=== PATIENT | female | born 1970 | race Caucasian/White ===

== ENCOUNTER 2017-09-14 13:06 | Emergency (ER) | payer OTHER ==
[~2017-09-14] VITALS: Ht 175.3 cm; Wt 61.2 kg
[~2017-09-14 13:06] MED LIST: AMOXICILLIN 50500 MG PO; ASPIR 8181 MG; ATORVASTATIN CA40 MG PO; AUGMENTIN 875-1 EACH PO; DOXYCYCLINE 10100 M1 PO; EFFIENT10 MG PO; LIDOCAINE VISC100 ML PO; METFORMIN HCL500 MG PO; MUPIROCIN22 GM TOP; NORCO 5-325 TA1 EACH PO; NOVOLOG100 UNIT/M SUBQ; PERCOCET PO; PLAVIX 75 MG TA75 M1 PO; POLYMYXIN B/TMP10 ML OP; PREDNISONE50 MG PO; PROAIR HFA8.5 GM INH; PROMETHAZINE/C118 ML PO; TOPROL XL25 MG PO; ZPAK PO
[2017-09-14] MEDS ORDERED: NOVOLOG100 UNIT/1 SUBQ (13:14)
[2017-09-14 13:40] LABS: ABSOLUTE BASOPHILS 0.1 thou/uL (0.0-0.2); ABSOLUTE EOSINOPHILS 0.1 thou/uL (0.0-0.7); ABSOLUTE LYMPHOCYTES 1.9 thou/uL (0.8-5.3); ABSOLUTE MONOCYTES 0.6 thou/uL (0.0-1.2); ABSOLUTE NEUTROPHILS 5.8 thou/uL (1.6-8.1); BASOPHILS 0.6 %; EOSINOPHILS 1.4 %; HEMATOCRIT 45.9 % (37.0-47.0); HEMOGLOBIN 15.3 gm/dL (12.0-15.0); LYMPHOCYTES 22.8 %; MCH 29.7 pg (26.0-34.0); MCHC 33.2 g/dL (28.0-37.0); MCV 89.2 fL (80.0-100.0); MONOCYTES 7.3 %; MPV 8.1 fl. (7.2-11.1); NUCLEATED RBCS 0 /100WBC; PLATELET COUNT* 308 thou/uL (150-400); POLYS 67.9 %; RBC 5.14 mil/uL (4.20-5.00); RDW-CV 13.3 % (10.5-14.5); WBC 8.5 thou/uL (4.0-11.0)
[2017-09-14 13:52] LABS: ANION GAP 8 mmol/L (7-16); BUN 13 mg/dL (7-18); CALCIUM 8.6 mg/dL (8.5-10.1); CHLORIDE 95 mmol/L (98-107); CO2 27 mmol/L (21-32); CREATININE 0.9 mg/dL (0.6-1.3); SODIUM 130 mmol/L (136-145)
[2017-09-14 13:54] LABS: GLUCOSE 684 mg/dL (70-99)
[2017-09-14 14:00] LABS: APTT 26.6 Seconds (25.0-31.3); PROTIME 9.8 Seconds (9.20-11.50)
[2017-09-14 14:10] LABS: ALBUMIN 3.1 g/dL (3.4-5.0); ALKALINE PHOSPHATASE 214 U/L (46-116); CK-MB MASS < 0.5 ng/mL (<0.5-3.6); LIPASE 246 U/L (73-393); MAGNESIUM 1.8 mg/dL (1.8-2.4); NT-PRO BRAIN NAT PEPTIDE 27 pg/mL (<300); SGOT 23 U/L (15-37); SGPT 55 U/L (30-65); TOTAL BILIRUBIN 0.2 mg/dL (<0.1-1.0); TOTAL PROTEIN 7.3 g/dL (6.4-8.2); TROPONIN-I LEVEL <0.06 ng/mL (<0.06)
--- NOTE | 2017-09-14 15:03 | EKG ---
[place] [address] ELECTROCARDIOGRAM REPORT Name: CLARK VÁSQUEZ Room: [facility]#: [id number] Admission: 09/14/17 Attend Phys: Discharge: Date of : 68 Report #: [id number] THIS REPORT FOR: //name// [facility] ED Test Date: 2017-09-14 Test Time: 13:14:18 Pat Name: CLARK DARLENEZULEYMA Department: Room: Gender: F [employer] Outcomes Liaison: STUDENT : 1970 Requested By: Rafa Maki Order Number: [id number] MD: Reji Mccord Measurements Intervals [place] Rate: 89 P: 47 [place]: 147 QRS: 66 QRSD: 83 T: 36 QT: 357 QTc: 435 Interpretive Statements Sinus rhythm Probable left atrial enlargement Probable left ventricular hypertrophy Baseline wander in lead(s) V3 Compared to ECG 02/24/2016 08:01:53 LEFT VENTRICULAR HYPERTROPHY now seen Electronically Signed On 09-14-2017 15:02:54 QUALITY CONTROL COORDINATOR by Reji Mccord [email or web address] <ELECTRONICALLY SIGNED> By: Reji Mccord MD, [facility] 09/14/17 1502 1314 1314 Reji Mccord MD, [facility] /EPI
[2017-09-14 16:05] VITALS: BP 126/64
== END 2017-09-14 16:06 | disposition home or self-care (01) ==
LOC: M.ERS 13:06
PROVIDERS: Family Medicine
DX: R07.9 Chest pain, unspecified (principal); E11.65 Type 2 diabetes mellitus with hyperglycemia; F17.210 Nicotine dependence, cigarettes, uncomplicated; Z88.6 Allergy status to analgesic agent; Z79.4 Long term (current) use of insulin

== ENCOUNTER 2018-07-16 06:02 | Inpatient (IN) | payer OTHER ==
[2018-07-16] VITALS (9 sets, daily range): BP systolic 95–123; BP diastolic 52–73
[~2018-07-16] VITALS: Ht 175.3 cm; Wt 68.5 kg
[~2018-07-16 06:02] MED LIST changes: -ASPIR 8181 MG; +ASPIR 8181 MG PO; +NOVOLOG100 UNIT/1 SUBQ
[2018-07-16] MEDS ORDERED: LEVEMIR FL100 UNIT/2 SUBQ (06:10)
[2018-07-16] MEDS ORDERED: PLAVIX 75 MG TA75 M1 PO (06:15)
[2018-07-16 06:26] LABS: ABSOLUTE BASOPHILS 0.1 thou/uL (0.0-0.2); ABSOLUTE EOSINOPHILS 0.2 thou/uL (0.0-0.7); ABSOLUTE LYMPHOCYTES 1.2 thou/uL (0.8-5.3); ABSOLUTE MONOCYTES 0.7 thou/uL (0.0-1.2); ABSOLUTE NEUTROPHILS 9.5 thou/uL (1.6-8.1); BASOPHILS 0.6 %; EOSINOPHILS 1.8 %; HEMOGLOBIN 14.4 gm/dL (12.0-15.0); LYMPHOCYTES 10.5 %; MCH 28.8 pg (26.0-34.0); MCHC 32.8 g/dL (28.0-37.0); MCV 87.6 fL (80.0-100.0); MONOCYTES 5.9 %; MPV 7.4 fl. (7.2-11.1); NUCLEATED RBCS 0 /100WBC; PLATELET COUNT* 414 thou/uL (150-400); POLYS 81.2 %; RBC 5.02 mil/uL (4.20-5.00); RDW-CV 13.6 % (10.5-14.5); WBC 11.7 thou/uL (4.0-11.0)
[2018-07-16 06:35] LABS: ANION GAP 10 mmol/L (7-16); BUN 19 mg/dL (7-18); CALCIUM 8.6 mg/dL (8.5-10.1); CHLORIDE 102 mmol/L (98-107); CO2 27 mmol/L (21-32); CREATININE 0.7 mg/dL (0.6-1.3); GLUCOSE 195 mg/dL (70-99); POTASSIUM 4.3 mmol/L (3.5-5.1); SODIUM 139 mmol/L (136-145)
[2018-07-16 06:39] LABS: APTT 26.1 Seconds (25.0-31.3); PROTIME 9.9 Seconds (9.20-11.50)
[2018-07-16 06:45] LABS: ALBUMIN 3.2 g/dL (3.4-5.0); ALKALINE PHOSPHATASE 147 U/L (46-116); LIPASE 161 U/L (73-393); MAGNESIUM 1.9 mg/dL (1.8-2.4); NT-PRO BRAIN NAT PEPTIDE 295 pg/mL (<300); SGOT 105 U/L (15-37); SGPT 141 U/L (30-65); TOTAL BILIRUBIN 0.4 mg/dL (<0.1-1.0); TOTAL PROTEIN 7.1 g/dL (6.4-8.2); TROPONIN-I LEVEL <0.06 ng/mL (<0.06)
--- NOTE | 2018-07-16 10:38 | EKG ---
[place] [address] ELECTROCARDIOGRAM REPORT Name: CLARK VÁSQUEZ Room: [address] ADM IN .R.#: [id number] Admission: 07/16/18 Attend Phys: Bertha Yap Discharge: Date of : 68 Report #: [id number] THIS REPORT FOR: //name// [facility] ED Test Date: 2018-07-16 Test Time: 06:07:42 Pat Name: CLARK VÁSQUEZ Department: Room: [facility] Gender: Production Worker: JENNIFER : 1970 Requested By: Klaus Rodriguez Order Number: [id number] MD: Reji Mccord Measurements Intervals [place] Rate: 70 P: 56 MT: 144 QRS: 66 QRSD: 81 T: 49 QT: 396 QTc: 428 Interpretive Statements Sinus rhythm Compared to ECG 09/14/2017 13:14:18 No significant changes Electronically Signed On 07-16-2018 10:38:47 RN AMBULATORY by Reji Mccord [email or web address] <ELECTRONICALLY SIGNED> By: Reji Mccord MD, [facility] 07/16/18 [facility] 6 Reji Mccord MD, FAC /EPI
[2018-07-16] MEDS ORDERED: LOPRESSOR25 (12:34)
--- NOTE | 2018-07-16 14:52 | 2DMMODE ---
[place] [address] 2 D/M-MODE ECHOCARDIOGRAM Name: CLARK VÁSQUEZ Room: [address] IN .R.#: [id number] Admission: 07/16/18 Attend Phys: Chente Vitale Discharge: Date of : 68 Date of Service: 07/16/18 1452 Report #: [id number] THIS REPORT FOR: //name// APPROVED REPORT Study performed: 07/16/2018 13:45:28 EXAM: Comprehensive 2D, Doppler, and color-flow Echocardiogram Patient Location: Bedside BSA: 1.83 HR: 76 bpm BP: 99/55 mmHg Other Information Study Quality: Fair Indications Chest Pain 2D Dimensions IVSd: 16.06 (7-11mm) LVOT Diam: 19.46 (18-24mm) LVDd: 37.88 mm PWd: 10.12 (7-11mm) Ascending Ao: 28.24 (22-36mm) LVDs: 22.95 (25-40mm) Aortic Root: 25.93 mm Volumes Left Atrial Volume (Systole) LA ESV Index: 18.70 mL/m2 Aortic Valve AoV Peak Rich.: 0.98 m/s AO Peak Gr.: 3.82 mmHg LVOT Max P.34 mmHg AO Mean Gr.: 2.24 mmHg LVOT Mean P.59 mmHg LVOT Max V: 0.91 m/s AO V2 VTI: 17.09 cm LVOT Mean V: 0.58 m/s FELIPE (VTI): 2.99 cm2 LVOT V1 VTI: 17.18 cm Mitral Valve E/A Ratio: 0.96 MV Decel. Time: 171.97 ms MV E Max Rich.: 0.53 m/s MV PHT: 49.87 ms MVA (PHT): 4.41 [place] [address] 2 D/M-MODE ECHOCARDIOGRAM Name: CLARK VÁSQUEZ Room: [address] IN .R.#: [id number] Admission: 07/16/18 Attend Phys: Chente Vitale Discharge: Date of : 68 Date of Service: 07/16/18 1452 Report #: [id number] TDI E/Lateral E': 4.42 E/Medial E': 5.89 Medial E' Rich.: 0.09 m/s Lateral E' Rich.: 0.12 m/s Pulmonary Valve PV Peak Rich.: 0.84 m/s PV Peak Gr.: 2.84 mmHg Tricuspid Valve RAP Estimate: 5.00 mmHg TR Peak Gr.: 13.99 mmHg RVSP: 18.99 mmHg PA Pressure: 18.99 mmHg Left Ventricle The left ventricle is normal size. There is normal LV segmental wall motion. There is normal left ventricular wall thickness. Left ventricular systolic function is normal. The left ventricular ejection fraction is within the normal range. LVEF is 60-65%. Right Ventricle The right ventricle is normal size. The right ventricular systolic function is normal. Atria The left atrium size is normal. The right atrium size is normal. Aortic Valve The aortic valve is normal in structure. No aortic regurgitation is present. There is no aortic valvular stenosis. Mitral Valve The mitral valve is normal in structure. Trace mitral regurgitation. No evidence of mitral valve stenosis. Tricuspid Valve The tricuspid valve is normal in structure. There is no tricuspid valve regurgitation noted. Pulmonic Valve Pulmonic valve is not well visualized. There is no pulmonic valvular regurgitation. Great Vessels The aortic root is normal in size. IVC [place] [address] 2 D/M-MODE ECHOCARDIOGRAM Name: CLARK VÁSQUEZ Room: [address] IN [facility]#: [id number] Admission: 07/16/18 Attend Phys: Chente Vitale Discharge: Date of : 68 Date of Service: 07/16/18 1452 Report #: [id number] collapses >50% with inspiration. Pericardium There is no pericardial effusion. <Conclusion> Left ventricular systolic function is normal. The left ventricular ejection fraction is within the normal range. <ELECTRONICALLY SIGNED> By: Reji Mccord MD, FACC 07/16/18 145 51 51 Reji Mccord MD, FACC /INF
[2018-07-16] MEDS ORDERED: OMEPRAZOLE 20 M20 M1 PO (15:19)
[2018-07-16] MEDS ORDERED: MAALOX ADVANCE355 M1 PO (15:21)
[2018-07-16] MEDS ORDERED: NITROGLYCERIN0.4 MG SUBLING ×2 (15:45→15:51)
--- NOTE | 2018-07-17 10:04 | CON ---
[address] [address] CONSULTATION Name: CLARK VÁSQUEZ Room: [address] IN M.R.#: [id number] Admission: 07/16/18 Attend Phys: Bertha Yap Discharge: 07/16/18 Date of : 68 Report #: [id number] THIS REPORT FOR: //name// CC: [facility] physician/PCP Chente Vitale DATE OF SERVICE: 07/16/2018 HISTORY OF PRESENT ILLNESS: The patient is a 48-year-old single white female who was admitted after an episode of chest pain. The patient initially presented here to [facility] in February of 2016. She was complaining of chest pain. She was seen by Dr. Harvey and underwent a stress test that showed evidence of ischemia. Dr. Harvey then performed cardiac catheterization from the right femoral artery. She has found normal ejection fraction. The LAD had a mid 95% stenosis. Dr. Escobar then placed 2 stents in her LAD. She did well after that time until 2 weeks ago. She apparently had chest pain, was taken to [facility] by ambulance. She was told she has had a heart attack. She had 2 stents apparently placed in the right coronary artery. She had been on no medications, but was sent home on a beta-afua, aspirin, metoprolol. She cannot take a statin drug because of a history of elevated liver function studies. She states since she was discharged from the hospital 2 weeks ago, she has felt tired, unable to sleep. She awakened last night with a burning in her chest, went in her back. She felt somewhat nauseated, diaphoretic. She was brought to the hospital and was admitted for further evaluation and treatment. She denied the pain being similar to her pain with her heart attack. She denied radiating down her arms. It was not related to coughing. She has had no blood in her stool. She denies exertional dyspnea. She does note occasional skipped heartbeat. No syncope. PAST MEDICAL HISTORY: She has had a lump removed from her breast, carpal tunnel surgery, diabetes, hyperlipidemia. No history of hypertension. MEDICATIONS: Include aspirin, beta afua, statin drug, was not given Plavix. ALLERGIES: She has intolerance to NAPROSYN. FAMILY HISTORY: Positive for heart disease. SOCIAL HISTORY: She has been twice, used to work at [employer]. She is now on disability. She smoked 2 packs of cigarettes a day, quit 2 weeks ago after heart attack. She currently receives her healthcare at [facility]. She denies alcohol abuse. She does use marijuana occasionally. REVIEW OF SYSTEMS: She has had no history of stroke, no history of asthma. She does have a lot of indigestion. She has had elevated liver function studies in the past. No kidney disease. She has had blood in her stool in the past, [place] [address] CONSULTATION Name: CLARK VÁSQUEZ Room: [address]#: [id number] Admission: 07/16/18 Attend Phys: Bertha Yap Discharge: 07/16/18 Date of : 68 Report #: [id number] scheduled for colonoscopy. No cancer, no psychiatric illness. PHYSICAL EXAMINATION: GENERAL: Revealed a middle-aged female lying in bed. She appeared in no acute distress. VITAL SIGNS: Showed a blood pressure of 100/60, pulse 70. She is afebrile. HEENT: She was anicteric, conjunctiva pink. Mucous members moist. NECK: Veins do not appear distended. No carotid bruits. Neck supple. CHEST: Clear to auscultation. CARDIOVASCULAR: Regular rate and rhythm. ABDOMEN: Soft. EXTREMITIES: Had no edema. Dorsalis pedis pulse 2+ bilaterally. SKIN: Cool and dry. NEUROLOGIC: Nonfocal. LYMPH: No adenopathy. MUSCULOSKELETAL: No joint effusion. ECG on admission showed a sinus rhythm. There was no ST or T-wave change. Her workup, she had portable chest x-ray done last night that showed normal heart size, clear lung loja. CT scan of the chest done last night showed no pulmonary embolus, clear lung loja. LAB WORK: Sodium 139, creatinine 0.7, glucose 195. SGOT 105, SGPT 141, alkaline phosphatase 147, bilirubin 0.4, troponin 0.06. BNP 295, white blood cell count 11.7, hemoglobin 14.4. IMPRESSION AND RECOMMENDATIONS: 1. Chest burning. Suspect noncardiac. The patient had stents placed 2 weeks ago. I would continue aspirin and Plavix. Would not recommend cardiac workup at this time. We will attempt to obtain the records from [facility]. 2. Fatigue. I would stop her beta afua. 3. Hyperlipidemia. The patient cannot tolerate statin drugs because of elevated liver function studies. 4. Elevated LFTs. 5. Diabetes. 6. Previous tobacco abuse. <ELECTRONICALLY SIGNED> By: Reji Mccord MD, FACC 07/17/18 1004 1207 2100Damarcela Mccord MD, FACC /nt
== END 2018-07-16 16:00 | disposition home or self-care (01) | DRG 303 ==
LOC: M.ERS 06:02 → M.TBA-ER 08:12 → M.2W 08:30
PROVIDERS: Emergency Medicine Emergency Medical Services; ADMIT Internal Medicine
DX: I25.119 Atherosclerotic heart disease of native coronary artery with unspecified angina pectoris (principal); E78.5 Hyperlipidemia, unspecified; E11.65 Type 2 diabetes mellitus with hyperglycemia; D72.829 Elevated white blood cell count, unspecified; R12 Heartburn; Z88.8 Allergy status to other drugs, medicaments and biological substances; Z82.49 Family history of ischemic heart disease and other diseases of the circulatory system; Z83.3 Family history of diabetes mellitus; Z87.891 Personal history of nicotine dependence